=== PATIENT | male | born 1980 | race Caucasian/White ===

== ENCOUNTER 2022-08-16 06:55 | Day surgery (SDC) | payer BC ==
[~2022-08-16 06:55] MED LIST: Acetaminophen 1,000 MG in Premix Bag 1 BAG IV SCH; Lactated Ringers 1,000 ML IV SCH; Pregabalin 75 MG Cap PO SCH; cefOXitin 2 GM in Sodium Chloride 0.9% 50 ML IV SCH
[2022-08-16] MEDS ORDERED: droPERidol 5 MG/2 ML SDV IVPUSH PRN (06:58)
[2022-08-16] MEDS ORDERED: Morphine 2 MG/ML SYRINGE IVPUSH PRN (06:58)
[2022-08-16] MEDS ORDERED: HYDROmorphone 1 MG/ML Syringe IVPUSH PRN (06:58)
[2022-08-16] MEDS ORDERED: Ondansetron 4 MG/2 ML SDV IVPUSH PRN (06:58)
[2022-08-16] MEDS ORDERED: fentaNYL 50 MCG/ML SDV IVPUSH PRN (06:58)
[2022-08-16] MEDS ORDERED: Albuterol 0.083% 2.5 MG/3 ML Neb Soln NEB PRN (06:58)
[2022-08-16] MEDS ORDERED: Metoclopramide 10 MG/2 ML SDV IVPUSH PRN (06:58)
[2022-08-16] MEDS ORDERED: Naloxone 0.4 MG/ML SDV IVPUSH PRN (06:58)
[2022-08-16] MEDS ORDERED: fentaNYL 100 MCG/2 ML SDV ONE (07:25)
[2022-08-16] MEDS ORDERED: cefOXitin 1 GM Vial ONE (07:25)
[2022-08-16] MEDS ORDERED: Sugammadex Sodium 200 MG/2 ML VIAL ONE ×2 (07:25→08:32)
[2022-08-16] MEDS ORDERED: Propofol 200 MG/20 ML SDV ONE (07:25)
[2022-08-16] MEDS ORDERED: Lidocaine 2% 5 ML SDV ONE (07:25)
[2022-08-16] MEDS ORDERED: Water For Injection, Sterile 20 ML ONE ×2 (07:25→07:26)
[2022-08-16] MEDS ORDERED: Rocuronium Bromide 50 MG/5 ML Syringe ONE ×2 (07:25→08:28)
[2022-08-16] MEDS ORDERED: Dexamethasone 4 MG/ML 5 ML MDV ONE (07:25)
[2022-08-16] MEDS ORDERED: Dexmedetomidine 200 MCG/2 ML SDV ONE (07:25)
[2022-08-16] MEDS ORDERED: Bupivacaine 0.5% 30 ML SDV ONE (07:37)
== END 2022-08-16 10:48 | disposition home or self-care (01) ==
LOC: MW.SDS 06:55
PROVIDERS: ATTEND Surgery
DX: L05.92 Pilonidal sinus without abscess (principal); L08.89 Other specified local infections of the skin and subcutaneous tissue; E11.9 Type 2 diabetes mellitus without complications; E03.9 Hypothyroidism, unspecified; L73.2 Hidradenitis suppurativa; E78.00 Pure hypercholesterolemia, unspecified; E66.9 Obesity, unspecified; F17.210 Nicotine dependence, cigarettes, uncomplicated; Z79.84 Long term (current) use of oral hypoglycemic drugs; Z79.899 Other long term (current) drug therapy; Z68.39 Body mass index [BMI] 39.0-39.9, adult
CPT/HCPCS: 11771; 82947; A9270; J0131; J0694; J1100; J2704; J3010; J3490; J7120; J7620-GY

== ENCOUNTER 2023-01-10 21:29 | Emergency (ER) | payer BC ==
[2023-01-10] MEDS ORDERED: Diphtheria,Pertussis(Acell),Tetanus Vaccine 0.5 ML Syringe IM ONE (21:51)
[2023-01-10] MEDS ORDERED: Amoxicillin/Clavulanate K 875-125 MG Tab PO ONE (22:07)
[2023-01-10] MEDS ORDERED: Ketorolac 30 MG/ML SDV IM ONE (22:20)
[2023-01-10] MEDS ORDERED: Acetaminophen 325 MG Tab PO ONE (22:21)
== END 2023-01-11 00:02 | disposition home or self-care (01) ==
LOC: MW.ED 21:29
DX: S61.551A Open bite of right wrist, initial encounter (principal); Z23 Encounter for immunization; E78.00 Pure hypercholesterolemia, unspecified; E03.9 Hypothyroidism, unspecified; E11.9 Type 2 diabetes mellitus without complications; E66.9 Obesity, unspecified; Z68.41 Body mass index [BMI] 40.0-44.9, adult; Z79.84 Long term (current) use of oral hypoglycemic drugs; Z79.899 Other long term (current) drug therapy; W55.01XA Bitten by cat, initial encounter
CPT/HCPCS: 73110; 73130; 90471; 90715; 96372; 99283; A9270; J1885

== ENCOUNTER 2023-01-12 14:15 | Emergency (ER) | payer BC ==
[2023-01-12] MEDS ORDERED: Piperacillin/Tazobactam 4.5 GM in Sodium Chloride 0.9% 100 ML IV ONE (15:00)
[2023-01-12 15:19] LABS: BASOPHILS ABSOLUTE AUTO 0.07 K/uL (0.00-0.20); BASOPHILS PERCENT AUTO 0.7 % (0.0-1.0); EOSINOPHILS ABSOLUTE AUTO 0.35 K/uL (0.00-0.45); EOSINOPHILS PERCENT AUTO 3.3 % (0.0-6.0); HEMATOCRIT 43.7 % (42.0-52.0); HEMOGLOBIN 14.8 g/dL (14.0-18.0); IMMATURE GRAN ABSOLUTE AUTO 0.03 K/uL (0.00-0.05); IMMATURE GRAN PERCENT AUTO 0.3 % (0.0-0.4); MEAN CORPUSCULAR HEMOGLOBIN 27.8 pg (28.0-32.0); MEAN CORPUSCULAR HGB CONC 33.9 g/dL (32.0-36.0); MEAN CORPUSCULAR VOLUME 82.1 fL (83.0-99.0); MEAN PLATELET VOLUME 10.3 fL (9.4-12.4); MONOCYTES ABSOLUTE AUTO 0.71 K/uL (0.00-0.80); MONOCYTES PERCENT AUTO 6.8 % (0.0-8.0); NEUTROPHILS ABSOLUTE AUTO 7.34 K/uL (1.80-7.70); NEUTROPHILS PERCENT AUTO 69.9 % (41.0-71.0); PLATELET COUNT,PLT 202 K/uL (150-400); RED BLOOD CELL COUNT 5.32 M/uL (4.52-5.90)
[2023-01-12 15:43] LABS: ALBUMIN 3.8 g/dL (3.4-5.0); BILIRUBIN TOTAL 0.5 mg/dL (0.2-1.0); C-REACTIVE PROTEIN 3.17 mg/dL (<0.3); CALCIUM 9.1 mg/dL (8.5-10.1); CARBON DIOXIDE,CO2 28.4 mmol/L (21.0-32.0); EST CRCL DRUG DOSING (CG) 114.17 mL/min; POTASSIUM,K 4.3 mmol/L (3.5-5.1); PROTEIN TOTAL,TP 7.5 g/dL (6.4-8.2)
[2023-01-12] MEDS ORDERED: Iopamidol 755 MG/ML 500 ML Multipack Bottle IVPUSH STA (16:07)
== END 2023-01-12 18:51 | disposition home or self-care (01) ==
LOC: MW.ED 14:15
DX: L03.113 Cellulitis of right upper limb (principal); E78.00 Pure hypercholesterolemia, unspecified; E11.9 Type 2 diabetes mellitus without complications; E03.9 Hypothyroidism, unspecified; E66.9 Obesity, unspecified; Z68.39 Body mass index [BMI] 39.0-39.9, adult; Z79.899 Other long term (current) drug therapy; Z79.84 Long term (current) use of oral hypoglycemic drugs
CPT/HCPCS: 36415; 73201; 80053; 85025; 86140; 96365; 99284; J2543; J3490; Q9967